=== PATIENT | male | born 1955 | race African-American/Black ===

== ENCOUNTER 2016-05-28 12:09 | Outpatient (CLI) | payer MEDICARE ==
[2016-05-28 12:47] LABS: Blood, Urine Negative (Negative); Glucose, Urine (Dipstick) Negative (Negative); Ketone, Urine Negative (Negative); Nitrite Negative (Negative); Protein, Urine (Dipstick) Trace mg/dL (Neg-Trace)
[2016-05-28 13:06] LABS: Bacteria/HPF None Seen HPF (None Seen); Bilirubin Negative (Negative); RBC/HPF 0-3 HPF (0-3); Renal Epithelial None Seen HPF (0-3); Squamous Epithelial None Seen HPF (0-3); Transitional Epithelial NONE SEEN HPF (0-3); Trichomonas/HPF None Seen HPF (None Seen); WBC/HPF 0-3 HPF (0-3); Yeast-All Forms None Seen HPF (None Seen)
[2016-05-28 13:07] LABS: Hyaline Casts/LPF NONE SEEN LPF (0-3 Hyaline); Oval Fat Bodies/HPF None Seen HPF (None Seen); Sperm/HPF None Seen HPF (None Seen)
== END 2016-05-28 12:10 | disposition home or self-care (01) ==
LOC: HPCALD 12:09
PROVIDERS: ATTEND Family Medicine
DX: Z11.3 Encounter for screening for infections with a predominantly sexual mode of transmission (principal); R30.0 Dysuria
CPT/HCPCS: 36415; 81001; 86592; 87389; 87491; 87591

== ENCOUNTER 2016-06-12 14:52 | Outpatient (CLI) | payer MEDICARE | END 2016-06-12 14:53 | disposition home or self-care (01) | LOC: BURLAB 14:52 | PROVIDERS: ATTEND Physician Assistant Medical | DX: B18.2 Chronic viral hepatitis C (principal) | CPT/HCPCS: 36415; 87522 ==

== ENCOUNTER 2017-02-16 14:17 | Emergency (ER) | payer MEDICARE ==
[2017-02-16] MEDS ORDERED: Lidocaine 1% w/Epinephrine 1:100K 30 ML VIAL ONE (14:24)
[2017-02-16] MEDS ORDERED: Adacel (T-DAP) 0.5 ML VIAL ONE (14:26)
[2017-02-16] MEDS ORDERED: Bacitracin Zinc 1 Packet ONE (14:40)
== END 2017-02-16 14:44 | disposition home or self-care (01) ==
LOC: BURERS 14:17
DX: S50.851A Superficial foreign body of right forearm, initial encounter (principal); I10 Essential (primary) hypertension; M06.9 Rheumatoid arthritis, unspecified; F32.9 Major depressive disorder, single episode, unspecified; F17.200 Nicotine dependence, unspecified, uncomplicated; W45.8XXA Other foreign body or object entering through skin, initial encounter
CPT/HCPCS: 10120; 90471; 90715; J2001

== ENCOUNTER 2017-10-22 08:10 | Outpatient (CLI) | payer MEDICARE ==
[2017-10-22] MEDS ORDERED: Iopamidol 370 76% 125 ML VIAL FS ONE (09:00)
--- NOTE | 2017-10-22 10:41 | CT ---
CT ABDOMEN AND PELVIS WITH CONTRAST: HISTORY: B18.2 (hepatitis C). R93.8 (abnormal CT). Z12.11. Constipation. COMPARISON: Ultrasound from 11/02/2015. FINDINGS: Mild atelectatic changes in the lung bases. No pericardial effusion. The left lobe liver hemangioma is similar. Smaller hypodense foci are present, likely either cysts o r hemangiomas, unchanged. At the right anterior abdominal wall, near the umbilicus, is a small fat containing what appears to b e ventral hernia. This has not significantly changed from the comparison examination, although there is motion artifact at this level, limiting fine detail evaluation. The appendix is visualized and is normal. No dilated loops of large or small bowel. No adenopathy. The aortoiliac contour is nonaneurysmal. Moderate facet arthrosis, lower lumbar spine. IMPRESSION: 1. Right anterior abdominal wall fat and small vessel containing likely a ventral hernia with a very small neck. 2. Unchanged hepatic hypodensities, suggesting hemangiomas. POS: [facility]
== END 2017-10-22 08:11 | disposition home or self-care (01) ==
LOC: BURCT 08:10
PROVIDERS: ATTEND Internal Medicine Gastroenterology
DX: Z12.11 Encounter for screening for malignant neoplasm of colon (principal); B18.2 Chronic viral hepatitis C; K59.09 Other constipation; R93.8 Abnormal findings on diagnostic imaging of other specified body structures; K76.9 Liver disease, unspecified
CPT/HCPCS: 74177; A4216

== ENCOUNTER 2021-06-03 10:47 | Outpatient (CLI) | payer MEDICARE | END 2021-06-03 10:48 | disposition home or self-care (01) | LOC: BURRAD 10:47 | PROVIDERS: ATTEND Family Medicine | DX: M25.511 Pain in right shoulder (principal) ==

== ENCOUNTER 2024-02-28 10:14 | Emergency (ER) | payer MEDICARE ==
[2024-02-28] MEDS ORDERED: Aspirin Chewable 81 MG TAB ONE (10:39)
[2024-02-28] MEDS ORDERED: Nitroglycerin 0.4 MG TAB 1 EACH ONE ×3 (10:39→11:14)
[2024-02-28 10:44] LABS: #Basophils 0.1 thou/uL (0.0-0.2); #Eosinophils 0.1 thou/uL (0.0-0.7); #Lymphocytes 2.1 thou/uL (1.20-3.40); #Monocytes 0.3 thou/uL (0.11-0.59); #Neutrophils 2.9 thou/uL (1.40-6.50); %Basophils 1.2 % (0.0-1.0); %Eosinophils 2.5 % (0.0-10.0); %Lymphocytes 37.4 % (21.0-51.0); %Monocytes 5.9 % (0.0-10.0); %Neutrophils 53.1 % (42.0-75.0); Hematocrit 51.6 % (42.0-52.0); Hemoglobin 16.7 g/dL (14.0-18.0); Mean Corpuscular HGB CONC 32.3 g/dL (32.0-36.0); Mean Corpuscular Hemoglobin 28.4 pg (27.0-31.0); Mean Corpuscular Volume 87.8 fl (78.0-98.0); Mean Platelet Volume 6.9 fL (7.4-10.4); Platelet Count 326 10x3/uL (130-400); RBC Distribution Width 11.6 % (11.5-14.5); Red Blood Cell (RBC) Count 5.87 mill/uL (4.70-6.10); White Blood Cell (WBC) Count 5.5 10x3/uL (4.8-10.8)
[2024-02-28 10:54] LABS: Acetaminophen Less than 10 mcg/mL (Less than 10); Alcohol Less than 10.0 mg/dL (Less than 10); Salicylate Less than 8.0 mg/dL (Less than 8.0)
[2024-02-28 10:56] LABS: ALT (SGPT) 18 U/L (8-55); AST (SGOT) 17 U/L (5-34); Albumin 4.3 g/dL (3.4-4.8); Alkaline Phosphatase 84 U/L (40-110); Anion Gap 15 mmol/L (10-20); BUN (Urea Nitrogen) 26 mg/dL (8.4-25.7); Bilirubin, Total 0.6 mg/dL (0.2-1.2); Calc. Creatinine Clearance 0 mL/min (70-130); Calcium 9.8 mg/dL (7.8-10.44); Carbon Dioxide 22 mmol/L (23-31); Chloride 105 mmol/L (98-107); Estimated GFR 70; Globulin 3.4 g/dL (2.4-3.5); Glucose 103 mg/dL (80-115); Potassium 4.7 mmol/L (3.5-5.1); Protein, Total 7.7 g/dL (5.8-8.1); Sodium 137 mmol/L (136-145); Troponin I Less than 0.010 ng/mL (< 0.028)
[2024-02-28] MEDS ORDERED: Morphine 4 MG/ML VIAL ONE (11:13)
[2024-02-28] MEDS ORDERED: Acetaminophen 500 MG TAB ONE (11:14)
[2024-02-28 12:19] LABS: Bilirubin Small (Negative); Blood, Urine Negative (Negative); Clarity Clear (Clear); Glucose, Urine (Dipstick) Negative (Negative); Ketone, Urine Trace mg/dL (Negative); Leukocyte Negative (Negative); Nitrite Negative (Negative); Protein, Urine (Dipstick) Trace mg/dL (Neg-Trace); Specific Gravity, Urine 1.025 (1.005-1.030); pH, Urine 5.5 (5.0-9.0)
[2024-02-28 12:26] LABS: Amphetamine Not Detected (NotDetected); Barbiturates Screen Not Detected (NotDetected); Benzodiazepine Screen Not Detected (NotDetected); Cocaine Metabolite Screen Detected (NotDetected); Methadone Not Detected (NotDetected); Methamphetamine Not Detected (NotDetected); Opiate Screen Detected (NotDetected); Oxycodone Screen Not Detected (NotDetected); Phencyclidine (PCP) Not Detected (NotDetected); THC/Cannabinoid Screen Not Detected (NotDetected); Tricyclic Screen Not Detected (NotDetected)
[2024-02-28 12:34] LABS: CAUTI Indications for Culture Dysuria,urgency,freq; Calcium Oxalate Crystals 3+ HPF (None Seen); Mucous/LPF 3+ LPF (<2+); RBC/HPF None Seen HPF (0-3); Squamous Epithelial None Seen HPF (0-3); WBC/HPF None Seen HPF (0-3)
[2024-02-28 12:35] LABS: Bacteria/HPF Rare-Few HPF (None Seen)
[2024-02-28 12:36] LABS: Urine Culture Reflex No No
[2024-02-28 13:48] LABS: Troponin I Less than 0.010 ng/mL (< 0.028)
== END 2024-02-28 13:55 | disposition short-term general hospital (02) ==
LOC: BURERS 10:14
DX: R07.9 Chest pain, unspecified (principal); F14.10 Cocaine abuse, uncomplicated; F17.210 Nicotine dependence, cigarettes, uncomplicated
CPT/HCPCS: 71045; 80053; 80306; 80307; 81001; 83880; 84484 ×2; 85025; 93005; J2272; 96361; 96374